=== PATIENT | female | born 1990 | race Caucasian/White ===

== ENCOUNTER 2020-06-02 06:19 | Outpatient (CLI) | payer BC ==
[~2020-06-02] VITALS: Ht 162.6 cm; Wt 103.2 kg
--- NOTE | 2020-06-02 06:30 | NUR ---
Patient arrives ambulatory with spouse with complaints of LUQ pain that has been "come and go for 3 days". Patient reports occasional thierno garcia but denies painful contractions, ROM, or vaginal bleeding. Reports normal movement. Patient recently recovered from COVID19 and denies persisting symptoms. Changes into gown, EFM explained and placed. 0650- SVE closed/thick/high, unchanged from office. Patient repositioned WL and updated on plan of care. Assessment completed. See physician notification. 0786- Lab at bedside.
[2020-06-02] MEDS ORDERED: PRIL40 PO (06:47)
[2020-06-02] MEDS ORDERED: ZOLOFT 100MG100 MG PO (06:48)
[2020-06-02] MEDS ORDERED: SYNTHROID0.125 MG/T PO (06:48)
[2020-06-02] MEDS ORDERED: PRENATAL (06:48)
[2020-06-02 07:00] VITALS: BP 121/82; PULSE 103; TEMP 97.4
[2020-06-02 07:35] LABS: BASO % 0.3 % (0.0-2.0); EOS % 0.3 % (0-4.0); GRAN # 7.5 (1.4-6.5); GRAN % 76.3 % (42.2-75.2); HEMOGLOBIN 12.2 g/dl (12.5-16.0); LYMPH # 1.6 (1.2-3.4); LYMPH % 16.1 % (20.0-51.0); MEAN CELL VOLUME 86 fl (80.0-100.0); MEAN CORPUSCULAR HEMOGLOBIN 28 pg (27.0-31.0); MEAN CORPUSCULAR HGB CONC 33 g/dl (33.0-37.0); MEAN PLATELET VOLUME 11.3 fl (7.4-10.4); MONO # 0.7 (0.1-0.6); MONO % 6.6 % (1.7-9.3); PLATELET COUNT 218 K/mm3 (130-400); REDCELL DISTRIBUTION WIDTH-CV 14.6 % (11.5-14.5)
[2020-06-02 07:37] LABS: ALBUMIN 3.4 gm/dL (3.5-5.0); BILIRUBIN,TOTAL 0.3 mg/dL (0.0-1.0); CALCIUM 9.2 mg/dL (8.4-10.2); CREATININE, serum 0.68 (0.52-1.25); POTASSIUM 4.5 mmol/L (3.4-5.0); TOTAL PROTEIN 6.5 gm/dL (6.4-8.2)
[2020-06-02 07:42] LABS: MUCOUS Present /lpf; PH 5 (5-8); URINE APPEARANCE Cloudy; URINE BACTERIA Rare /hpf; URINE BILIRUBIN Negative (NEGATIVE); URINE BLOOD Negative (NEGATIVE); URINE COLOR Yellow; URINE GLUCOSE Negative (NEGATIVE); URINE KETONE Negative (NEGATIVE); URINE LEUKOCYTE ESTERASE Trace (NEGATIVE); URINE NITRATE Negative (NEGATIVE); URINE PROTEIN(semi-quant) 1+ (NEGATIVE); URINE RBC 0-2 /hpf; URINE UROBILINOGEN Negative (NEGATIVE)
[2020-06-02 07:44] LABS: HEMATOCRIT 36.8 % (37.0-47.0)
[2020-06-02 07:53] LABS: COLLECTION METHOD CLEAN CATCH
[2020-06-02 08:04] VITALS: BP 115/77; PULSE 88
--- NOTE | 2020-06-02 08:12 | NUR ---
Patient given discharge instructions. Reviewed labor precautions, kick counts, and does not need to follow up today in office. Patient denies questions and reports feeling much better after GI cocktail and rest. Leaves ambulatory.
== END 2020-06-02 08:14 | disposition home or self-care (01) ==
LOC: LDRO 06:19
PROVIDERS: Obstetrics & Gynecology
DX: O26.893 Other specified pregnancy related conditions, third trimester (principal); R10.32 Left lower quadrant pain; Z3A.38 38 weeks gestation of pregnancy

== ENCOUNTER 2020-06-05 04:23 | Outpatient (CLI) | payer BC ==
[~2020-06-05] VITALS: Ht 162.6 cm; Wt 101.6 kg
[~2020-06-05 04:23] MED LIST: PRENATAL; PRIL40 PO; SYNTHROID0.125 MG/T PO; ZOLOFT 100MG100 MG PO
[2020-06-05 04:43] VITALS: BP 125/90; PULSE 91; TEMP 98
--- NOTE | 2020-06-05 04:45 | NUR ---
Patient ambulatory to R4 with c/o LUQ abdominal pain. She was seen on 06/02 with the same complaint. Labs were drawn and were WNL and she received a GI cocktail and was discharged home feeling better. Patient was changed into gown and wedged to left side in bed. EFMs explained and applied. FHR 140 bpm and reactive. Irregular CTX per toco, patient denies feeling them. VSS. SVE closed/thick/high. Plan of care reviewed with patient and spouse.
[2020-06-05 05:50] VITALS: BP 135/77; PULSE 76
--- NOTE | 2020-06-05 05:55 | NUR ---
Patient reports feeling "a little" better after her GI cocktail and is wanting to go home. Discharge order on chart. Patient discharged home in stable condition.
== END 2020-06-05 05:55 | disposition home or self-care (01) ==
LOC: LDRO 04:23 → LDR 04:59 → LDRO 05:55
DX: O26.893 Other specified pregnancy related conditions, third trimester (principal); R10.32 Left lower quadrant pain; Z3A.39 39 weeks gestation of pregnancy
CPT/HCPCS: OP

== ENCOUNTER 2020-06-14 23:38 | Outpatient (CLI) | payer BC ==
[~2020-06-14] VITALS: Ht 162.6 cm; Wt 103.1 kg
--- NOTE | 2020-06-14 23:50 | NUR ---
PT TO UNIT AMBULATORY WITH SPOUSE WITH COMPLAINTS OF CONTRACTIONS THAT BEGAN TODAY AND HAVE BECOME MORE CONSISTENT OVER THE LAST COUPLE OF HOURS. PT ORIENTED TO ROOM, CHANGED INTO GOWN, VS OBTAINED, EFM X2 APPLIED, SVE PERFORMED.
[2020-06-15 00:08] VITALS: BP 116/80; PULSE 94; TEMP 98.7
[2020-06-15 00:30] VITALS: BP 116/80; PULSE 94; TEMP 98.7
--- NOTE | 2020-06-15 01:35 | NUR ---
0113- PT MAY DC HOME PER DR. LARSEN AT THIS TIME. 0119- PT OFF MONITORS, CHANGING INTO STREET CLOTHES. 0130- DISCHARGE INSTRUCTIONS REVIEWED WITH PT AND SPOUSE. QUESTIONS ENCOURAGED AND ANSWERED, UNDERSTANDING VERBALIZED. 0135- PT AND SPOUSE OFF UNIT AMBULATORY FOR HOME.
== END 2020-06-15 01:35 | disposition home or self-care (01) ==
LOC: LDRO 23:38 → LDR 06-15 00:23 → LDRO 06-15 01:35
DX: O62.9 Abnormality of forces of labor, unspecified (principal); Z3A.40 40 weeks gestation of pregnancy; Z86.19 Personal history of other infectious and parasitic diseases; Z87.891 Personal history of nicotine dependence
CPT/HCPCS: OP

== ENCOUNTER 2020-06-16 03:51 | Inpatient (IN) | payer BC ==
[~2020-06-16] VITALS: Ht 162.6 cm; Wt 102.7 kg
[2020-06-16] VITALS (33 sets, daily range): BP systolic 105–156; BP diastolic 51–90; PULSE 65–130; TEMP 97.8–98.3
--- NOTE | 2020-06-16 04:00 | NUR ---
G1L0. 40-4. Pt wheeled to LDR 5 with spouse. Clean gown on. EFM and TOCO explained and applied. Pt reports contractions since 1930 last night that have come and gone but states they think they are back to being 5 mins apart. Pt denies LOF. Pt does report a small amount of bloody show when using the restrom but states she was checked last night when she came to the hospital. Pt reports good movement. Plan of care explained. SVE /-2. Call light within reach.
--- NOTE | 2020-06-16 05:25 | NUR ---
SVE unchanged. Pt very discouraged, emotional support given. 0528: called and updated on pts status. See physican notification. Pt and updated on plan of care. 0630: MARGO . Report given to Jayne KRAUSE who will be taking over her care at this time
--- NOTE | 2020-06-16 07:00 | NUR ---
IV STARTED CONSENTS SIGNED, QUESTIONS ANSWERED PATIENT BREATHING THROUGH CONTRACTIONS
[2020-06-16 08:12] LABS: BASO % 0.2 % (0.0-2.0); EOS % 0.1 % (0-4.0); GRAN # 8.1 (1.4-6.5); GRAN % 79.8 % (42.2-75.2); HEMATOCRIT 38.4 % (37.0-47.0); HEMOGLOBIN 12.8 g/dl (12.5-16.0); LYMPH # 1.5 (1.2-3.4); LYMPH % 15.2 % (20.0-51.0); MEAN CELL VOLUME 86 fl (80.0-100.0); MEAN CORPUSCULAR HEMOGLOBIN 29 pg (27.0-31.0); MEAN CORPUSCULAR HGB CONC 33 g/dl (33.0-37.0); MONO # 0.4 (0.1-0.6); MONO % 4.4 % (1.7-9.3); PLATELET COUNT 210 K/mm3 (130-400); RED BLOOD COUNT 4.49 M/mm3 (4.10-5.30); REDCELL DISTRIBUTION WIDTH-CV 15.9 % (11.5-14.5)
--- NOTE | 2020-06-16 11:33 | NUR ---
HEART TONES IN 90S [id number]. CSECTION CALLED AT 1130. RL, WL, LL, RL, DAVID POSITONS. FSE ATTEMPTED, UNSUCESSFUL. PATIENT PREPPED FOR SECTION, OFF EFM AT 1133 TO OPERATING ROOM
[2020-06-17 02:00] VITALS: BP 138/82; PULSE 100; TEMP 97.9
[2020-06-17 06:45] VITALS: BP 128/83; PULSE 81; TEMP 98.4
--- NOTE | 2020-06-17 06:45 | NUR ---
Rests in bed, alert. Request to have baby taken to nursery. States has done her last pee. Denies any pain at this time.
--- NOTE | 2020-06-17 09:04 | NUR ---
Initial visit attempt; Patient had visitor, [facility] Therapist left card of congratulations for the of her son and information regarding the availability of spiritual care at our hospital.
--- NOTE | 2020-06-17 10:00 | NUR ---
Rests in bed, alert. claims consultant visits with patient.
[2020-06-17 16:30] VITALS: BP 110/68; PULSE 93; TEMP 98.5
--- NOTE | 2020-06-17 16:30 | NUR ---
Rests in bed, alert. Percocet 5/325 mg two given per request and as ordered.
--- NOTE | 2020-06-17 18:15 | NUR ---
Rests in bed, alert, talking with friend on the phone. Ibuprofen 800 mg given as ordered.
[2020-06-17] MEDS ORDERED: MOTRIN 800800 MG/TAB PO (19:09)
[2020-06-17] MEDS ORDERED: PERCOCET 325 MG1 TA2 PO (19:09)
[2020-06-17 20:30] VITALS: BP 107/69; PULSE 87; TEMP 98
[2020-06-18 09:15] VITALS: BP 128/82; PULSE 90; TEMP 98.9
== END 2020-06-18 13:55 | disposition home or self-care (01) | DRG 788 ==
LOC: LDRO 03:51 → LDR 06:43 → OB 12:40
PROVIDERS: ADMIT Obstetrics & Gynecology
PROC: 10D00Z1 Extraction of Products of Conception, Low, Open Approach (ICD-10-PCS; principal; 2020-06-16)
PROC: 10907ZC Drainage of Amniotic Fluid, Therapeutic from Products of Conception, Via Natural or Artificial Opening (ICD-10-PCS; 2020-06-16)
DX: O48.0 Post-term pregnancy (principal); Z3A.40 40 weeks gestation of pregnancy; Z37.0 Single live birth; O99.214 Obesity complicating childbirth; E66.9 Obesity, unspecified; O99.284 Endocrine, nutritional and metabolic diseases complicating childbirth; O99.344 Other mental disorders complicating childbirth; F41.9 Anxiety disorder, unspecified; E03.9 Hypothyroidism, unspecified
CPT/HCPCS: J0690; J1885; J2370; J2400; J2405; J2590; J2795; J3010; J7120

== ENCOUNTER 2020-07-21 08:27 | Day surgery (SDC) | payer BC ==
[2020-07-21] VITALS (8 sets, daily range): BP systolic 101–112; BP diastolic 53–73; PULSE 57–76; TEMP 98.2–98.7
[~2020-07-21] VITALS: Ht 162.6 cm; Wt 88.3 kg
[~2020-07-21 08:27] MED LIST changes: +MOTRIN 800800 MG/TAB PO; +PERCOCET 325 MG1 TA2 PO; -PRENATAL; +PRENATAL PO
[2020-07-21] MEDS ORDERED: MOTRIN 600600 MG/TAB PO (12:05)
[2020-07-21] MEDS ORDERED: PERCOCET 325 MG1 TA2 PO (12:05)
== END 2020-07-21 16:03 | disposition home or self-care (01) ==
LOC: SDCO 08:27
DX: O99.63 Diseases of the digestive system complicating the puerperium (principal); K80.10 Calculus of gallbladder with chronic cholecystitis without obstruction; E03.9 Hypothyroidism, unspecified; K21.9 Gastro-esophageal reflux disease without esophagitis; F42.9 Obsessive-compulsive disorder, unspecified; F32.9 Major depressive disorder, single episode, unspecified; Z86.16 Personal history of COVID-19; Z79.899 Other long term (current) drug therapy; Z79.890 Hormone replacement therapy; Z88.0 Allergy status to penicillin; Z91.040 Latex allergy status; Z79.1 Long term (current) use of non-steroidal anti-inflammatories (NSAID); Z98.891 History of uterine scar from previous surgery; Z88.8 Allergy status to other drugs, medicaments and biological substances
CPT/HCPCS: J0690; J1100; J1885; J2405; J2704; J3010; J7120; Q9967